=== PATIENT | male | born 1990 | race Caucasian/White ===

== ENCOUNTER 2016-12-13 21:53 | Emergency (ER) | payer SELFPAY ==
[~2016-12-13] VITALS: Ht 177.8 cm; Wt 74.0 kg
[2016-12-13 21:56] VITALS: BP 131/84; PULSE 88; RESP 18; TEMP 97.8; O2SAT 100
== END 2016-12-13 23:58 | disposition left against medical advice (07) ==
LOC: NED 21:53
DX: R68.89 Other general symptoms and signs (principal)
CPT/HCPCS: 99281

== ENCOUNTER 2016-12-14 04:34 | Emergency (ER) | payer SELFPAY ==
[2016-12-14 04:47] VITALS: BP 141/75; PULSE 102; RESP 14; TEMP 98; O2SAT 96
--- NOTE | 2016-12-14 06:01 | RADRPT ---
EXAM DATE/TIME: 12/14/2016 05:55 [place] COMPARISON: No previous studies available for comparison. INDICATIONS : Left shoulder pain from trauma sustained in a fall. MEDICAL HISTORY : None. SURGICAL HISTORY : None. ENCOUNTER: Initial ACUITY: 1 day PAIN SCORE: 8/10 LOCATION: Left shoulder FINDINGS: Multiple view examination of the left shoulder demonstrates no evidence of fracture or dislocation. The glenohumeral and acromioclavicular joints are maintained. There is normal range of motion betwee n internal and external rotation. Bony mineralization is normal. CONCLUSION: Intact left shoulder. Ross Ibarra MD on December 14, 2016 at 5:59 Board Certified Radiologist. This report was verified electronically.
--- NOTE | 2016-12-14 06:27 | PD ---
HPI Chief Complaint: Injury Time Seen by Provider: 04:55 Travel History International Travel<30 days: No Contact w/Intl Traveler<30days: No Traveled to known affect area: No History of Present Illness HPI Patient is a 26-year-old male who comes in complaining of left shoulder pain after he fell on it while doing a back flip. He says this happened around 9 PM tonight. He denies hitting his head. He denies any other injuries. He says he came down right on his shoulder. He says he is unable to move the shoulder. PFSH Past Medical History Medical History: Denies Significant Hx Tetanus Vaccination: Unknown Influenza Vaccination: No Past Surgical History Surgical History: No Previous Surgery Social History Alcohol Use: Yes (OCC) Tobacco Use: Yes (1 PPD) Substance Use: No Allergies-Medications (Allergen,Severity, Reaction): Coded Allergies: No Known Allergies (Unverified , 12/13/16) Reported Meds & Prescriptions Reported Meds & Active Scripts Active No Active Prescriptions or Reported Medications Review of Systems General / Constitutional: No: Fever HENT: No: Headaches, Lightheadedness Cardiovascular: No: Chest Pain or Discomfort Respiratory: No: Shortness of Breath Gastrointestinal: No: Nausea, Vomiting Musculoskeletal: Positive: Limited ROM, Pain Skin: No Change in Pigmentation Physical Exam Narrative GENERAL: Awake and alert in no acute distress. SKIN: Warm and dry. HEAD: Atraumatic. Normocephalic. EYES: Pupils equal and round. No scleral icterus. ENT: Mucous membranes pink and moist. CARDIOVASCULAR: Regular rate and rhythm. No murmur appreciated. RESPIRATORY: No accessory muscle use. Clear to auscultation. Breath sounds equal bilaterally. MUSCULOSKELETAL: No obvious deformities. No clubbing. No cyanosis. No edema. Range of motion noted by pain to the left shoulder. Severe pain with abduction. Radial pulse intact, sensation intact. Data Data Last Documented VS Vital Signs Date Time Temp Pulse Resp B/P Pulse Ox O2 Delivery O2 Flow Rate FiO2 12/14/16 04:47 98.0 102 14 141/75 96 Room Air Orders Shoulder, Complete (>2vws) (12/14/16 ) [facility] Medical Decision Making Medical Screen Exam Complete: Yes Emergency Medical Condition: Yes Medical Record Reviewed: Yes Differential Diagnosis Humeral fracture versus shoulder dislocation versus shoulder sprain Narrative Course Patient is a 26-year-old male comes in complaining of left shoulder pain after he landed on it while doing a back flip. Exam shows limited range of motion due to pain. During the exam I abducted his arm fully above his head, and he felt his humerus moved back into place. He felt immediate relief and was then able to range his arm fully on his own. Radial pulse intact after maneuver. X-ray of the shoulder shows no fracture or dislocation. Patient given a shoulder sling. Advised follow-up with orthopedics. Advised to avoid lifting. Advised to take Tylenol or ibuprofen as needed for pain. Advised to return to the ED as needed for worsening symptoms. Diagnosis Primary Impression: Shoulder dislocation Qualified Code: S43.005A - Shoulder dislocation, left, initial encounter Referrals: Rey Niño MD call for appointment Patient Instructions: General Instructions, Shoulder Dislocation (ED) Additional Instructions: Follow up with orthopedics. Wear the shoulder sling until you see the orthopedist. No heavy lifting until cleared by orthopedics. Take Tylenol or Ibuprofen for pain. Return as needed for any worsening symptoms. Scripts No Active Prescriptions or Reported Meds Disposition: 01 DISCHARGE HOME Condition: Stable Sepideh Miller MD Dec 14, 2016 06:27
== END 2016-12-14 07:16 | disposition home or self-care (01) ==
LOC: NEPC 04:34
DX: S43.005A Unspecified dislocation of left shoulder joint, initial encounter (principal); W19.XXXA Unspecified fall, initial encounter; Y93.43 Activity, gymnastics
CPT/HCPCS: 23650; 73030